=== PATIENT | male | born 1975 ===

== ENCOUNTER 2023-09-29 20:29 | Emergency (ER) | payer OTHER ==
[~2023-09-29] VITALS: Ht 170.2 cm; Wt 90.0 kg
[2023-09-29 21:18] LABS: BASOPHILS % (AUTO) 0.4 % (0.0-2.0); EOSINOPHILS % (AUTO) 0.2 % (1.0-6.0); HEMATOCRIT 41.6 % (41-53); LYMPHOCYTES # (AUTO) 1.1 K/uL (1.0-4.8); LYMPHOCYTES % (AUTO) 11.8 % (22.0-44.0); MEAN CORPUSCULAR HEMOGLOBIN 30.6 pg (26.0-34.0); MEAN CORPUSCULAR HGB CONC 33.6 G/dL (31.0-37.0); MEAN CORPUSCULAR VOLUME 91 fL (80-100); MONOCYTES # (AUTO) 0.7 K/uL (0.1-1.0); MONOCYTES % (AUTO) 7.7 % (2.0-9.0); NEUTROPHILS # (AUTO) 7.3 K/uL (1.8-7.7); NEUTROPHILS % (AUTO) 79.9 % (40.0-70.0); PLATELET COUNT (AUTO) 210 K/uL (150-450); RED BLOOD CELL COUNT(AUTO) 4.57 MIL/uL (4.50-5.90); WHITE BLOOD COUNT (AUTO) 9.1 K/uL (4.5-11.0)
[2023-09-29 21:24] LABS: COVID AG,FIA SOURCE NASAL SWAB
[2023-09-29 21:28] LABS: ANION GAP 8 mmol/L (8-16); CALCIUM, TOTAL 8.3 mg/dL (8.8-10.5); CARBON DIOXIDE 26 mmol/L (22-29); CHLORIDE 96 mmol/L (98-107); CREATININE 1.04 mg/dL (0.60-1.30); GLOMERULAR FILTR. RATE CALC > 60 mL/min (>60); GLUCOSE,RANDOM 307 mg/dL (70-110); POTASSIUM 3.2 mmol/L (3.5-5.1); SODIUM SERUM 130 mmol/L (136-145); UREA NITROGEN, BLOOD 16 mg/dL (7-18)
[2023-09-29 21:37] LABS: LACTIC ACID 1.6 mmol/L (0.4-2.0)
[2023-09-29 21:48] LABS: SARS-COV2 (COVID) ANTIGEN,FIA Negative (Negative)
[2023-09-29 21:49] LABS: INFLUENZA TYPE A NEGATIVE FOR TYPE A (NEGATIVE); INFLUENZA TYPE B NEGATIVE FOR TYPE B (NEGATIVE)
[2023-09-30] VITALS: BP 129/70; PULSE 79; RESP 18
[2023-09-30] MEDS: DIPHENOXYLATE/ATROP 2.5-0.025 MG TABLET PO ONE (00:41)
[2023-09-30] MEDS: POTASSIUM CHLORIDE 20 MEQ ER TABLET PO ONE (00:41)
[2023-09-30] MEDS: SODIUM CHLORIDE 0.9% 500 ML IV ONE (00:41)
[2023-09-30] MEDS: CIPROFLOXACIN HCL 250 MG TABLET PO ONE (00:42)
[2023-09-30 01:05] VITALS: TEMP 97.7
== END 2023-09-30 03:14 | disposition home or self-care (01) ==
LOC: EMS 20:29
DX: R19.7 Diarrhea, unspecified (principal); R10.9 Unspecified abdominal pain; Z20.822 Contact with and (suspected) exposure to COVID-19
CPT/HCPCS: 99284; 71046; 87426; 80048; 83605; 85025; 87804; 36415; 84145; 96360; J7040